=== PATIENT | male | born 1960 | race Hispanic/Latino ===

== ENCOUNTER → 2024-05-21 | Outpatient (CLI) | payer OTHER ==
[~2024-05-21] MED LIST: LEVO500T2 PO; METF-444 PO; METF-446 PO; METR-172 PO; OMEP20TA20 PO
--- NOTE | 2024-05-21 14:02 | HMCIMG ---
CT HEART SAVER PROMOTIONAL HISTORY: Cardiac calcification scoring. FINDINGS: The cardiac calcification scoring is 314.2. LM = 54.0, LAD = 159.6, and RCA = 100.6. Limited examination of the heart was performed. The study is done for additional or incidental findings. IMPRESSION: Diffuse low attenuation of the liver parenchyma suggests fatty change. No other additional findings.
== END | disposition home or self-care (01) ==
LOC: RAH 12:35
PROVIDERS: ATTEND Physician Assistant Medical
DX: Z13.6 Encounter for screening for cardiovascular disorders (principal)
CPT/HCPCS: 75571